=== PATIENT | female | born 1965 | race Caucasian/White ===

== ENCOUNTER 2018-01-25 09:16 | Day surgery (SDC) | payer OTHER, SELFPAY | END 2018-01-26 11:25 | disposition home or self-care (01) | PROVIDERS: PCP Physician Assistant Medical; Visit Provider Surgery | DX: C50.911 Malignant neoplasm of unspecified site of right female breast (principal); Z80.3 Family history of malignant neoplasm of breast; Z80.41 Family history of malignant neoplasm of ovary; Z17.0 Estrogen receptor positive status [ER+]; Z40.01 Encounter for prophylactic removal of breast | CPT/HCPCS: 19303; 38500; 78195; 94760; A9541; J0131; J0690; J1100; J1885; J2250; J2270; J2405; J2704; J3010 ==

== ENCOUNTER 2018-03-01 06:24 | Day surgery (SDC) | payer OTHER, SELFPAY ==
[2018-02-28 11:41] VITALS: BMI 28.3
[2018-03-01] VITALS (7 sets, daily range): BP systolic 110–135; BP diastolic 61–77; PULSE 67–98; RESP 14–16; TEMP 35.9–36.7; O2SAT 95–100; BMI 27.3
--- NOTE | 2018-03-01 | DI.RAD.S_ITS ---
PROCEDURE: XR CHEST 1V INDICATIONS: POST OP LEFT CHEST POWER PORT PLACEMENT TECHNIQUE: One view of the chest was acquired. COMPARISON: [facility], , CHEST 2 VIEW, 02/05/2014, 10:05. FINDINGS: Surgical changes and devices: Left-sided port with tip in the proximal SVC. Scattered surgical clips bilaterally. Lungs and pleura: No pleural effusions or pneumothorax. Lungs are clear. Mediastinum: Mediastinal contours appear normal. Heart size is normal. Bones and chest wall: No suspicious bony lesions. Overlying soft tissues appear unremarkable. IMPRESSION: Status post left-sided port placement. No apparent complication. Dictated by: Josiah Cosme M.D. on 03/01/2018 at 10:19 Approved by: Josiah Cosme M.D. on 03/01/2018 at 10:22
--- NOTE | 2018-03-01 | DI.RAD.S_ITS ---
PROCEDURE: XR CHEST 1V INDICATIONS: LEFT CHEST PORTACATH GUIDEWIRE TECHNIQUE: One view of the chest was acquired. COMPARISON: [facility], , CHEST 2 VIEW, 02/05/2014, 10:05. FINDINGS: Surgical changes and devices: Left-sided Port-A-Cath is partially visualized. Guidewire appears to extend through the left subclavian vein and superior vena cava into the right atrium and ventricle. Surgical tape projects over the spine. Additional surgical clips over the right hilum and left lung base medially. Additional instruments overlie the right upper chest. IMPRESSION: Intraoperative imaging of port placement. Dictated by: Josiah Cosme M.D. on 03/01/2018 at 10:10 Approved by: Josiah Cosme M.D. on 03/01/2018 at 10:12
[2018-03-01] MEDS: LACTATED RINGERS 1,000 ML 42 ML IV (07:51)
--- NOTE | 2018-03-01 09:18 | P.HP_ITS ---
History of Present Illness Date Patient Seen: 03/01/18 Time Patient Seen: 09:16 Chief complaint: portacath placement [id number] Narrative: Amrita Amin is a 52 year old female who has a recent diagnosis of stage II infiltrating breast cancer. She has undergone bilateral mastectomy and is here today for placement of a Port-A-Cath to facilitate chemotherapy. Patient History Medical History Ganglion cyst (Acute) H/O: hysterectomy (Acute) Headache (Acute) Helicobacter pylori gastritis (Acute) History of endometriosis (Acute) History of hematuria (Acute) History of ovarian cyst (Acute) Impaired vision (Acute) Plantar fasciitis (Acute) Post hysterectomy menopause (Acute) Vitamin D deficiency (Acute) Surgical History History of carpal tunnel release of both wrists (Acute) History of left oophorectomy (Acute) History of right salpingo-oophorectomy (Acute) Previous section (Acute) S/P mastectomy, bilateral (Acute) History of carpal tunnel repair Status post hysterectomy Status post laparoscopy (11/01/14) Status post laparoscopy (05/14/16) Family & Social History Family History: Reviewed 03/01/18 by Zaria Anne MD Social History: household members spouse Prior Living Arrangements House Tobacco & Substance use: Smoking Status Never smoker alcohol intake current Substance Use Type does not use Meds Home Medications Medication Instructions Recorded Confirmed Type multivitamin [Multiple Vitamins] 3 tab PO QDAY #0 01/23/18 03/01/18 History Allergies Allergy/AdvReac Type Severity Reaction Status Date / Time No Known Drug Allergies Allergy Verified 03/01/18 07:12 Review of Systems Review of Systems All systems reviewed & are unremarkable except as noted in HPI and below Exam Vital Signs (past 8 hours): Vital Signs - 8 hr 3 03/01/18 07:15 Temperature 97.2 F L Pulse Rate 67 Respiratory Rate 16 Blood Pressure 131/61 H Pulse Oximetry 100 Pulse Oximetry 100 Narrative Exam Narrative: Very pleasant lady in no distress HEENT: NCAT, PERRLA, EOMI Lungs: CTAB CV: RRR no murmur Breast: bilateral mastectomy incisions are healing without skin loss Abd: soft, NT normal active bowel sounds Ext: warm and well perfused Assessment & Plan Plan: Plan: We discussed the risks and benefits of left subclavian port placement the patient has expressed desire to have the procedure.
[2018-03-01] MEDS: CEFAZOLIN 2 GM/100 ML FROZ.PIGGY IV (09:30)
[2018-03-01] MEDS: BUPIVACAINE 0.5% (PF) 30 ML VIAL INJ (09:46)
[2018-03-01] MEDS: LIDOCAINE 1% W/EPI INJ 20 ML INJ (09:48)
--- NOTE | 2018-03-01 10:01 | PM.OP.1 ---
Operative Date/Time/Diagnoses - Date of procedure: 03/01/18 Time of procedure: 10:01 Pre-op diagnosis: Invasive right breast cancer Post-op diagnosis: same Procedure & Clinicians Procedure: Left subclavian PowerPort placement Same procedure as scheduled: Yes Indications: Right breast cancer Surgeon: Zaria Anne Click Yes if Unassisted: Yes Anesthesia Type: General (Ahsaei) and Local Operative Notes Findings: Left subclavian power port in good position in the superior vena cava Closure Type: primary Implants & Drains: Low-profile PowerPort Estimated Blood Loss (mL): 5 Blood products transfused: none Procedure in detail: After obtaining informed consent, the patient was brought to the operating room and placed in the supine position on the operating table. Following successful induction of general endotracheal anesthesia, appropriate padding of all bony prominences, and placement of appropriate monitors, the left chest was prepped and draped in a standard surgical fashion. A timeout was held per SCOAP protocol. A mixture of local anesthetics was infiltrated in the deltopectoral groove on the left side. The right subclavian vein was accessed via the Seldinger technique and a wire was gently placed into the vein. Fluoroscopy was used to verify position of the wire in the subclavian vein. We next created a pocket of approximately 2 cm inferior to the access site of the vein. This was checked for size and found to fit the port nicely. The included tunneling device was used to place the tubing and the pocket connecting it to the access site of the subclavian vein. The tubing was trimmed to an appropriate length and connected to the Port-A-Cath. The Port-A-Cath was sewn into place in the pocket using interrupted Prolene sutures. The pocket was closed in 2 layers. The dilator and introducer were then gently passed over the wire and into the subclavian vein. The wire and dilator were removed leaving only the introducer. The tubing was then placed in the introducer and the introducer removed per textile science technician's directions. The port was then flushed with saline solution and found to be functional and in good position. It was then hep-locked with 2000 units of heparin. The incision was closed in 2 layers with Vicryl and Monocryl sutures. Dermabond was applied to the skin. All sponge, needle, and instrument counts were correct at the conclusion of the case. Patient was allowed to awaken from anesthesia and taken to the post-anesthesia care unit in good condition. Complications: none Condition: stable Disposition: PACU Plan for aftercare: 1. Discharge to home 2. The power port is ready for use
--- NOTE | 2018-03-01 10:04 | P.OP_ITS ---
Operative Date/Time/Diagnoses - Date of procedure: 03/01/18 Time of procedure: 10:01 Pre-op diagnosis: Invasive right breast cancer Post-op diagnosis: same Procedure & Clinicians Procedure: Left subclavian PowerPort placement Same procedure as scheduled: Yes Indications: Right breast cancer Surgeon: Zaria Anne Click Yes if Unassisted: Yes Anesthesia Type: General (Ahsaei) and Local Operative Notes Findings: Left subclavian power port in good position in the superior vena cava Closure Type: primary Implants & Drains: Low-profile PowerPort Estimated Blood Loss (mL): 5 Blood products transfused: none Procedure in detail: After obtaining informed consent, the patient was brought to the operating room and placed in the supine position on the operating table. Following successful induction of general endotracheal anesthesia, appropriate padding of all bony prominences, and placement of appropriate monitors, the left chest was prepped and draped in a standard surgical fashion. A timeout was held per SCOAP protocol. A mixture of local anesthetics was infiltrated in the deltopectoral groove on the left side. The right subclavian vein was accessed via the Seldinger technique and a wire was gently placed into the vein. Fluoroscopy was used to verify position of the wire in the subclavian vein. We next created a pocket of approximately 2 cm inferior to the access site of the vein. This was checked for size and found to fit the port nicely. The included tunneling device was used to place the tubing and the pocket connecting it to the access site of the subclavian vein. The tubing was trimmed to an appropriate length and connected to the Port-A-Cath. The Port-A-Cath was sewn into place in the pocket using interrupted Prolene sutures. The pocket was closed in 2 layers. The dilator and introducer were then gently passed over the wire and into the subclavian vein. The wire and dilator were removed leaving only the introducer. The tubing was then placed in the introducer and the introducer removed per digital research analyst's directions. The port was then flushed with saline solution and found to be functional and in good position. It was then hep- locked with 2000 units of heparin. The incision was closed in 2 layers with Vicryl and Monocryl sutures. Dermabond was applied to the skin. All sponge, needle, and instrument counts were correct at the conclusion of the case. Patient was allowed to awaken from anesthesia and taken to the post-anesthesia care unit in good condition. Complications: none Condition: stable Disposition: PACU Plan for aftercare: 1. Discharge to home 2. The power port is ready for use
[2018-03-01] MEDS: OXYCODONE/ACETAMINOPHEN 5/325 TABLET 1 TAB PO (10:17)
== END 2018-03-01 11:11 | disposition home or self-care (01) ==
PROVIDERS: PCP Physician Assistant Medical; Visit Provider Surgery
PROC: (CPT 36561; principal; 2018-03-01 07:45)
DX: C50.911 Malignant neoplasm of unspecified site of right female breast (principal); Z45.2 Encounter for adjustment and management of vascular access device
CPT/HCPCS: 36561; 36415; 71045; 76000; 80053; 85025; 86300; C1788; J0690; J1100; J1644; J2405; J2704; J3010

== ENCOUNTER → 2018-03-01 11:15 | Outpatient (CLI) | payer OTHER, SELFPAY ==
[2018-03-01 11:48] LABS: Add Manual Diff / Slide Review NO; Basophils Percent Auto 0.7 % (0-2); Hematocrit 38.2 % (36-46); Lymphocytes Percent Auto 18.2 % (25-40); Mean Corpuscular HGB Conc 34.1 % (30-36); Mean Corpuscular Hemoglobin 29.2 PG (26-34); Mean Corpuscular Volume 85.6 fL (80-100); Monocytes Percent Auto 2.1 % (3-14); Neutrophils Absolute Auto 4100 /uL (3000-5900); Platelet Count 225 X10^3/uL (150-400); Red Blood Cell Count 4.46 X10^6/uL (4.0-5.2); Red Cell Distribution Width 13.4 % (11.6-14.8); White Blood Cell Count 5.2 X10^3/uL (4.5-11.0)
[2018-03-01 12:02] LABS: Alanine Aminotransferase 39 IU/L (9-52); Albumin 4.4 g/dL (3.5-5.0); Albumin Globulin Ratio 1.4 (1.0-2.8); Alkaline Phosphatase 76 U/L (38-126); Aspartate Aminotransferase 31 IU/L (14-36); BUN Creatinine Ratio 11.4 (6-22); Bilirubin Total 0.3 mg/dL (0.2-1.3); Blood Urea Nitrogen 8 mg/dL (7-17); Calcium 9.4 mg/dL (8.4-10.2); Carbon Dioxide 29 mmol/L (22-32); Chloride 103 mmol/L (98-107); Estimated Glomerular Filt Rate > 60.0 mL/min (>60); Globulin 3.2 g/dL (1.7-4.1); Glucose 149 mg/dL (70-100); HEMOLYSIS < 15 (0-50); Potassium 3.8 mmol/L (3.4-5.1); Sodium 144 mmol/L (137-145); Total Protein 7.6 g/dL (6.3-8.2)
[2018-03-03 16:59] LABS: Cancer Antigen 27.29 13 U/mL (< 38)
== END ==
PROVIDERS: PCP Physician Assistant Medical; Visit Provider Internal Medicine Hematology & Oncology
DX: C50.911 Malignant neoplasm of unspecified site of right female breast (principal)
CPT/HCPCS: 36415; 80053; 85025; 86300

== ENCOUNTER → 2018-03-03 11:44 | Outpatient (CLI) | payer OTHER, SELFPAY ==
--- NOTE | 2018-03-03 11:45 | DI.ECHO.S_ITS ---
[facility]---------+ [facility] +---------+ : : [address] [address] : : : : [id number] : : : : Phone: [phone]+ Echocardiogram Report + + :Name: JUSTIN TRAN Study Date: 03/03/2018 Height: 62 in : :[facility] Weight: 180 lb: : Gender: Female BSA: 1.8 m2 : :: 1965 Age: 52 yrs : :Reason For Study: Chemotherapy F/U (ICD Code V67.2) : : Performed By: Shayy Perez : :Referring: ALINA SCHAFFER : + + Interpretation Summary Normal echo study. The left ventricular ejection fraction is 60-65%. Procedure: A two-dimensional transthoracic echocardiogram with color flow and Doppler was performed. The study quality was technically adequate. There is no prior echocardiogram noted for this patient. The patient was in normal sinus rhythm during the exam. Left Ventricle: The left ventricle is normal in size, wall thickness, and systolic function without any focal wall motion abnormalities. The ejection fraction is estimated to be 60-65%. Assessment of diastolic parameters indicates normal left ventricular diastolic function and normal filling pressures. Right Ventricle: The right ventricle grossly appears normal in size with probable normal systolic function. Atria: The left atrial size is normal. Right atrial size is normal. The interatrial septum is intact with no evidence for an atrial septal defect. Mitral Valve: The mitral valve is normal in structure and function. There is no mitral regurgitation noted. Aortic Valve: The aortic valve is trileaflet. The aortic valve opens well. No aortic regurgitation is present. Tricuspid Valve: The tricuspid valve is normal in structure and function. There is trace tricuspid regurgitation. The right ventricular systolic pressure is estimated at 24 mmHg assuming a right atrial pressure of 3 mm Hg. Pulmonic Valve: The pulmonic valve is normal in structure and function. There is no pulmonic valvular regurgitation. Great Vessels: The aortic root is normal size. The dimensions of the ascending aorta are normal. The IVC is of normal diameter and collapses greater than 50% with a sniff. This suggests a low right atrial pressure of 3 mm Hg. Pericardium/ Pleura There is no pericardial effusion. There is no pleural effusion. MMode/2D Measurements & Calculations LVIDd: 4.3 cm Ao root diam: 3.0 cm LVIDs: 2.6 cm Aortic Jxn: 2.6 cm FS: 39.0 % asc Aorta Diam: 3.5 cm IVSd: 0.80 cm Ao Arch Diam (Prox Trans): 3.0 cm LVPWd: 0.86 cm LV brooks. diameter/BSA (cm/m^2): 2.3 LV sys. diameter/BSA (cm/m^2): 1.4 LA dimension: 3.7 cm RA long axis: 3.9 cm LA A2 area: 13.4 cm2 RA area: 9.7 cm2 LA A4 area: 12.5 cm2 RA vol: 20.5 ml LA length (vol): 4.1 cm RA : 11.2 ml/m2 LA vol: 35.3 ml IVC diam: 1.4 cm LA vol index: 19.3 ml/m2 Doppler Measurements & Calculations Ao V2 max: 121.5 cm/sec MV E max enzo: 95.1 cm/sec Ao V2 mean: 78.0 cm/sec MV A max enzo: 65.5 cm/sec Ao max P.9 mmHg MV E/A: 1.5 Ao mean P.9 mmHg Med Peak E' Enzo: 10.8 cm/sec Ao V2 VTI: 25.5 cm E/E' med: 8.8 Lat Peak E' Enzo: 13.6 cm/sec E/E' lat: 7.0 E/e' average: 7.9 MV dec time: 0.19 sec MV P1/2t: 57.6 msec TR max enzo: 227.6 cm/sec MV P1/2t max enzo: 94.7 cm/sec TR max P.7 mmHg MVA(P1/2t): 3.8 cm2 PA V2 max: 90.3 cm/sec PA V2 mean: 62.0 cm/sec PA mean P.8 mmHg PA Accel Time: 0.13 sec Electronically signed by: Julio Hopkins on Reading Physician:03/03/2018 04:00 PM
== END ==
PROVIDERS: PCP Physician Assistant Medical; Visit Provider Internal Medicine Hematology & Oncology
DX: C50.911 Malignant neoplasm of unspecified site of right female breast (principal)
CPT/HCPCS: 93306

== ENCOUNTER 2018-04-04 12:35 | Day surgery (SDC) | payer OTHER, SELFPAY ==
[2018-04-04] VITALS (11 sets, daily range): BP systolic 88–123; BP diastolic 54–85; PULSE 70–81; RESP 10–16; TEMP 36.2–36.4; O2SAT 94–100; BMI 27.6
--- NOTE | 2018-04-04 | PATH_ITS ---
[facility] Accession Number: [id number] . 01 Material submitted: . COLON POLYP AT 25 CM . 02 Diagnosis: Colon, Polyp at 25 cm, Biopsy: Tubular adenoma. MRV/04/07/2018 . 02 Electronically signed: . Sheila Dave MD, Pathologist NPI- [id number] . 01 Gross description: . One specimen is received in formalin labeled Brennan, Amrita and colon polyp at 25 cm and consists of two ragged argueta tissue fragments, 0.4 x 0.3 x 0.1 cm each. The specimen is submitted in toto in cassette A1. (MATT:[id number]) . /[facility] . 02 Pathologist provided ICD-10: D12.6 . 02 CPT . 393557 Performed at: 01 [facility] [address] [id number] MD Cyrus Espinoza MD Phone: [phone] Performed at: 02 [facility] [id number] [address] [place] [id number] MD Kristian Sosa MD Phone: [phone]
--- NOTE | 2018-04-04 13:47 | PM.HP.1 ---
History of Present Illness Date Patient Seen: 04/04/18 Time Patient Seen: 13:47 Chief complaint: colonoscopy [id number] Narrative: Amrita is well know to me from prior encounters. She is here today to undergo her first screening colonoscopy before starting chemotherapy. Patient History Medical History FHx: mastectomy (Acute ~01/25/18) Ganglion cyst (Acute) H/O: hysterectomy (Acute) Headache (Acute) Helicobacter pylori gastritis (Acute) History of endometriosis (Acute) History of hematuria (Acute) History of ovarian cyst (Acute) Impaired vision (Acute) Plantar fasciitis (Acute) Post hysterectomy menopause (Acute) Vitamin D deficiency (Acute) Surgical History History of carpal tunnel release of both wrists (Acute) History of left oophorectomy (Acute) History of right salpingo-oophorectomy (Acute) Previous section (Acute) S/P mastectomy, bilateral (Acute) History of carpal tunnel repair Status post hysterectomy Status post laparoscopy (11/01/14) Status post laparoscopy (05/14/16) Family & Social History Family History: Reviewed 04/04/18 by Zaria Anne MD Social History: household members spouse Tobacco & Substance use: Smoking Status Never smoker alcohol intake current Substance Use Type does not use Meds Home Medications Medication Instructions Recorded Confirmed Type multivitamin [Multiple Vitamins] 3 tab PO QDAY #0 01/23/18 03/01/18 History lidocaine-prilocaine 1 applictn TOP .q6hp PRN #30 gram 03/01/18 Rx MDD none ondansetron 4 mg PO Q6H PRN #10 tab MDD 6 03/01/18 Rx oxycodone-acetaminophen [Endocet] 1 tab PO Q4-6H PRN #20 tab MDD 6 03/01/18 Rx Allergies Allergy/AdvReac Type Severity Reaction Status Date / Time No Known Drug Allergies Allergy Verified 04/04/18 12:46 Review of Systems Review of Systems All systems reviewed & are unremarkable except as noted in HPI and below Exam Vital Signs (past 8 hours): - 04/04/18 12:59 Temperature 97.2 F L Pulse Rate 81 Respiratory Rate 16 Blood Pressure 123/85 H Pulse Oximetry 100 Oxygen Delivery Method Room Air Narrative Exam Narrative: Clarissa healthy lady in no obvious distress HEENT: Normocephalic and atraumatic, pupils equal round reactive to light accommodation with anicteric sclera Lungs: Clear to auscultation bilaterally Heart: Regular rate and rhythm Chest: Bilateral mastectomy incisions are healing Abdomen: Soft, nontender, active bowel sounds Extremities: Warm and well perfused, no edema Assessment & Plan Plan: Assessment/Plan Narrative: Very pleasant 53-year-old lady with stage II breast cancer who has never had a screening colonoscopy. She is scheduled to start chemotherapy soon and she is here for colonoscopy prior to starting the process. We discussed the risks and benefits of the procedure the patient has expressed a desire to continue
[2018-04-04] MEDS: fentaNYL 250 MCG/5 ML INJ IV (14:05)
--- NOTE | 2018-04-04 14:09 | PM.OP.1 ---
Operative Date/Time/Diagnoses - Date of procedure: 04/04/18 Time of procedure: 14:09 Pre-op diagnosis: Screening Post-op diagnosis: same Procedure & Clinicians Procedure: Colonoscopy to the cecum with polypectomy x1 Same procedure as scheduled: Yes Indications: No prior colonoscopy Surgeon: Zaria Anne Anesthesia Type: Sedation (Versed 8 mg; fentanyl 250 mcg) Operative Notes Findings: 1. Excellent prep 2. A single 3 mm sessile polyp at 25 cm from the anal verge 3. No other polyps or mass lesions and no AV malformations 4. Grade 1-2 internal hemorrhoids 5. Minimal diverticulosis limited to sigmoid region Estimated Blood Loss (mL): 1 Blood products transfused: none Procedure in detail: After obtaining informed consent, the patient was brought to the GI suite and placed in the left lateral decubitus position on the examination table. After placement of appropriate monitors, the patient was given incremental doses of Versed and Fentanyl until an appropriate level of sedation was achieved. A time out was held per SCOAP protocol. A digital rectal examination was performed and did not reveal any masses or obstructing lesions. The colonoscope was gently passed into the patient's anus and the entire colon navigated to the level of the cecum with minimal difficulty. Once in the cecum, the scope was withdrawn being sure to go before and beyond all mucosal folds and prominences and get an excellent examination. The findings are noted above. At the level of the rectal vault, the scope was retroflexed and the internal anal canal was examined. The scope was straightened and air aspirated from the colon. The instrument was removed from the patient's body and the procedure was concluded. The patient was allowed to awaken from sedation without difficulty and taken to the post-anesthesia care unit in good condition. Total withdrawal time was 8 min Total sedation time was 20 min Complications: none Condition: stable Disposition: PACU Plan for aftercare: 1. Discharge to home 2. Plan for next colonoscopy in 5 years or as clinically indicated
[2018-04-04] MEDS: SODIUM CHLORIDE 0.9% 1,000 ML 200 ML IV (14:45)
--- NOTE | 2018-04-04 14:46 | SUR.PHASEI ---
BP noted patient easily arrousable to verbal stimuli, skin pink warm and dry, mentation normal. IV fluids infusing at 200ml/hour as ordered.
--- NOTE | 2018-04-04 15:02 | SUR.PREOP ---
sitting up taking fluids and snack, fully awake, remains pink warm and dryt
== END 2018-04-04 15:20 | disposition home or self-care (01) ==
PROVIDERS: PCP Physician Assistant Medical; Visit Provider Surgery
PROC: 0DJD8ZZ Inspection of Lower Intestinal Tract, Via Natural or Artificial Opening Endoscopic (ICD-10-PCS; CPT 45378; principal; 2018-04-04 14:00)
DX: Z12.11 Encounter for screening for malignant neoplasm of colon (principal); K64.8 Other hemorrhoids; K57.30 Diverticulosis of large intestine without perforation or abscess without bleeding; C50.919 Malignant neoplasm of unspecified site of unspecified female breast; D12.6 Benign neoplasm of colon, unspecified
CPT/HCPCS: 45380; 99152; J3010

== ENCOUNTER → 2018-04-28 09:03 | Outpatient (CLI) | payer OTHER, SELFPAY ==
[2018-05-02 20:02] LABS: Glucose-6-Phosphate Dehydrogen 11.3 U/g Hgb (7.0-20.5)
== END ==
PROVIDERS: PCP Physician Assistant Medical; Visit Provider Internal Medicine Hematology & Oncology
DX: C50.211 Malignant neoplasm of upper-inner quadrant of right female breast (principal); Z13.0 Encounter for screening for diseases of the blood and blood-forming organs and certain disorders involving the immune mechanism
CPT/HCPCS: 36415; 82955

== ENCOUNTER → 2021-10-27 10:28 | Outpatient (CLI) | payer OTHER, SELFPAY ==
--- NOTE | 2021-10-27 | DI.RAD.S_ITS ---
PROCEDURE: XR DEXA AXIAL SKELETON INDICATIONS: Acquired deformity of musculoskeletal system COMPARISON: None. FINDINGS: This blank DEXA report has been sent in error by the PACS system. The correct and complete report will be forthcoming in 1-2 days. Thank you for your patience and understanding. Dictated by: Debbie Huff MD, PhD on 10/27/2021 at 16:56 Approved by: Debbie Huff MD, PhD on 10/27/2021 at 16:56
== END ==
PROVIDERS: PCP Naturopath; Referring Provider Naturopath; Visit Provider Naturopath
DX: M85.851 Other specified disorders of bone density and structure, right thigh (principal); C50.919 Malignant neoplasm of unspecified site of unspecified female breast; Z78.0 Asymptomatic menopausal state; M95.9 Acquired deformity of musculoskeletal system, unspecified
CPT/HCPCS: 77080

== ENCOUNTER → 2023-08-05 11:09 | Outpatient (CLI) | payer OTHER, SELFPAY ==
--- NOTE | 2023-08-05 | DI.US.S_ITS ---
PROCEDURE: US ABDOMEN COMPLETE INDICATIONS: ABDOMINAL PAIN TECHNIQUE: Real-time scanning was performed of the abdominal and retroperitoneal organs, with image documentation. COMPARISON: [facility], US, ABDOMEN COMPLETE, 05/12/2016, 16:13. FINDINGS: Liver: Liver is normal in size and homogeneous in echotexture. Right lobe liver cyst measuring 1.7 cm in maximum diameter. Gallbladder: Unremarkable Biliary ducts: Intrahepatic bile ducts are non-dilated. Extrahepatic bile duct caliber measures 2 mm. Normal is 6-7 mm or less in diameter, or 10 mm or less post-cholecystectomy. Pancreas: Visualized portions of the pancreas are sonographically normal. Spleen: Spleen is normal in size and homogeneous in echotexture. Kidneys: Kidneys are normal in size and echotexture. Right kidney measures 9.7 cm long; left kidney measures 10.1 cm long. No hydronephrosis or nephrolithiasis. No solid masses. Aorta: Visualized aorta is normal in caliber at less than 3 cm. Iliacs: Proximal common iliac arteries are normal in caliber at less than 2.5 cm. IVC: Intrahepatic inferior vena cava is patent. Miscellaneous: No free abdominal fluid. IMPRESSION: Unremarkable abdominal ultrasound Dictated by: Tyshawn Saeed M.D. on 08/05/2023 at 13:38 Approved by: Tyshawn Saeed M.D. on 08/05/2023 at 13:39
== END ==
PROVIDERS: PCP Naturopath; Referring Provider Naturopath; Visit Provider Naturopath
DX: K81.1 Chronic cholecystitis (principal); R10.11 Right upper quadrant pain; R19.11 Absent bowel sounds; K76.89 Other specified diseases of liver
CPT/HCPCS: 76700